=== PATIENT | male | born 1940 | race Caucasian/White ===

== ENCOUNTER 2021-09-30 11:00 | Observation (INO) | payer MEDICARE ==
[~2021-09-30] VITALS: Ht 172.7 cm; Wt 83.9 kg
[2021-09-30 10:44] LABS: BASOPHILS % (AUTO) 0.8 % (0.0-5.0); EOSINOPHILS % (AUTO) 4.8 % (0.0-8.0); LYMPHOCYTES % (AUTO) 18.5 % (21.0-51.0); MEAN CORPUSCULAR HEMOGLOBIN 28.3 pg (27.0-33.0); MEAN CORPUSCULAR HGB CONC 31.4 g/dL (32.0-36.0); MEAN CORPUSCULAR VOLUME 90.2 fL (79-99); MONOCYTES % (AUTO) 10.4 % (3.0-13.0); NEUTROPHILS % (AUTO) 65.1 % (40.0-77.0); PLATELET COUNT (AUTO) 249 K/uL (130-400); WHITE BLOOD COUNT (AUTO) 7.5 K/uL (4.8-10.8)
[2021-09-30 10:52] LABS: CREATININE 1.4 mg/dL (0.5-1.5); POTASSIUM 4.2 mmol/L (3.5-5.1)
[2021-10-03 09:05] VITALS: BP 140/81
[2021-10-03] MEDS ORDERED: MELA1TAB28 PO (12:50)
[2021-10-03] MEDS ORDERED: PREVAGEN PO (12:50)
[2021-10-03] MEDS ORDERED: AEC81 PO (12:50)
[2021-10-03] MEDS ORDERED: CARV12.511 PO (12:50)
[2021-10-03] MEDS ORDERED: CHOL2000 PO (12:50)
[2021-10-03] MEDS ORDERED: SUPER B COMPLEX PO (12:50)
[2021-10-03] MEDS ORDERED: DOCU-116 PO (12:50)
[2021-10-03] MEDS ORDERED: LISI20TA24 PO (12:50)
[2021-10-03] MEDS ORDERED: MVIT PO (13:34)
[2021-10-03] MEDS ORDERED: FINA5TAB41 PO (13:34)
[2021-10-03] MEDS ORDERED: CILO50TA PO (13:34)
[2021-10-03] MEDS ORDERED: IRON PO (13:34)
[2021-10-04] VITALS (18 sets, daily range): BP systolic 132–173; BP diastolic 77–112
[2021-10-04] MEDS: CEFAZOLIN SODIUM 1 GM VIAL IVP SCH ×4 (06:00→19:30)
[2021-10-04] MEDS ORDERED: LACTATED RINGERS 1000ML 1,000 ML IV ONE (06:46)
[2021-10-04] MEDS ORDERED: SUCCINYLCHOLINE CHLORIDE 20 MG/ML 10 ML VIAL ONE (06:50)
[2021-10-04] MEDS ORDERED: DEXAMETHASONE SOD PHOSPHATE 10MG/ML 1ML VIAL ONE ×2 (06:50→06:54)
[2021-10-04] MEDS ORDERED: LIDOCAINE PF 100MG/5ML (2%) SYRINGE 5ML ONE (06:50)
[2021-10-04] MEDS ORDERED: PROPOFOL 10 MG/ML 20ML VIAL IV ONE (06:50)
[2021-10-04] MEDS ORDERED: NEOSTIGMINE 5MG/5ML SYR IV ONE (06:51)
[2021-10-04] MEDS ORDERED: ROCURONIUM 10MG/1ML SYR 10 MG/ML ML ONE (06:51)
[2021-10-04] MEDS ORDERED: MIDAZOLAM HCL 1 MG/ML 2ML VIAL ONE (06:51)
[2021-10-04] MEDS ORDERED: GLYCOPYRROLATE 1 MG/5 ML SYRINGE ONE ×2 (06:51→10:52)
[2021-10-04] MEDS ORDERED: ONDANSETRON 4MG INJ ONE (06:51)
[2021-10-04] MEDS ORDERED: FENTANYL CITRATE PF 50 MCG/1 ML 2ML VIAL ONE (06:51)
[2021-10-04] MEDS ORDERED: MORPHINE PF 100MG/10ML AMP IV ONE (06:52)
[2021-10-04] MEDS ORDERED: CEFAZOLIN SODIUM 1 GM VIAL ONE (06:52)
[2021-10-04] MEDS ORDERED: BUPIVACAINE/EPI/PF 0.25% 30ML VIAL IJ ONE (06:52)
[2021-10-04] MEDS ORDERED: THROMBIN-JMI 20000 UNIT KIT TP ONE (06:53)
[2021-10-04] MEDS ORDERED: PHENYLEPHRINE HCL 10 MG/ML 1ML VIAL IV ONE (07:35)
[2021-10-04] MEDS ORDERED: EPHEDRINE SULFATE 50 MG/ML AMPULE ONE (07:45)
[2021-10-04] MEDS ORDERED: ARTIFICIAL TEARS 3.5 GM OINTMENT ONE (07:56)
[2021-10-04] MEDS ORDERED: 0.9%NACL 10ML VIAL IVP PRN (11:30)
[2021-10-04] MEDS ORDERED: MORPHINE 2 MG SYG IVP PRN (11:30)
[2021-10-04] MEDS ORDERED: PROMETHAZINE HCL 25 MG/ML 1ML AMPULE IM PRN (11:30)
[2021-10-04] MEDS ORDERED: HYDROCODONE/ACETAMINOPHEN 5/325 MG TAB PO PRN (11:30)
[2021-10-04] MEDS ORDERED: ENALAPRILAT DIHYDRATE 1.25MG/ML 1ML VIAL IV ONE (11:48)
[2021-10-04] MEDS ORDERED: ***HM***(Cholecalciferol (Vitamin D3) (Vitamin D3) 50 MCG) PO SCH (11:48)
[2021-10-04] MEDS: LACTATED RINGERS 1000ML 1,000 ML IV SCH (14:16)
[2021-10-04] MEDS: DEXAMETHASONE SOD PHOSPHATE 4 MG/ML 1ML VIAL IVP SCH ×3 (14:16→23:33)
[2021-10-04] MEDS: CARVEDILOL 12.5 MG TABLET PO SCH (20:31)
[2021-10-04] MEDS: CILOSTAZOL 100 MG TAB PO SCH (20:31)
[2021-10-04] MEDS ORDERED: FINASTERIDE 5 MG TABLET PO SCH (21:00)
[2021-10-04] MEDS ORDERED: PYRIDOXINE HCL PO SCH (21:00)
[2021-10-04] MEDS ORDERED: MELATONIN PO SCH (21:00)
[2021-10-05 00:32] VITALS: BP 134/90
[2021-10-05] MEDS: LACTATED RINGERS 1000ML 1,000 ML IV SCH (00:50)
[2021-10-05] MEDS: CEFAZOLIN SODIUM 1 GM VIAL IVP SCH ×2 (01:24→06:00)
[2021-10-05 04:32] VITALS: BP 146/92
[2021-10-05] MEDS: DEXAMETHASONE SOD PHOSPHATE 4 MG/ML 1ML VIAL IVP SCH (05:25)
[2021-10-05] MEDS: CARVEDILOL 12.5 MG TABLET PO SCH (07:51)
[2021-10-05] MEDS: CILOSTAZOL 100 MG TAB PO SCH (07:51)
[2021-10-05 07:55] VITALS: BP 140/82
[2021-10-05] MEDS ORDERED: LISINOPRIL 20 MG TABLET PO SCH (09:00)
[2021-10-05] MEDS ORDERED: MULTIVITAMIN TABLET PO SCH (09:00)
[2021-10-05] MEDS ORDERED: SUPER B COMPLEX PO SCH (09:00)
[2021-10-05] MEDS ORDERED: ASPIRIN 81 MG EC TAB PO SCH (09:00)
[2021-10-05] MEDS ORDERED: PREVAGEN PO SCH (09:00)
[2021-10-06] MEDS ORDERED: FERROUS SULFATE 325 MG TABLET.DR PO SCH (09:00)
[2021-10-06] MEDS ORDERED: DOCUSATE SODIUM 100 MG CAP PO SCH (09:00)
== END 2021-10-05 08:45 | disposition home or self-care (01) ==
LOC: EDSTATUS 11:00 → DAHIP 10-04 05:58 → 4CH 10-04 13:24
PROVIDERS: ADMIT Neurological Surgery; ATTEND Neurological Surgery
DX: M48.061 Spinal stenosis, lumbar region without neurogenic claudication (principal); Z20.822 Contact with and (suspected) exposure to COVID-19; E78.5 Hyperlipidemia, unspecified; I10 Essential (primary) hypertension; Z79.899 Other long term (current) drug therapy
CPT/HCPCS: 36415; 63047; 63048; 71045; 72020; 80048; 85025; 87635; 96374; 96375; 96376 ×2; A4215; A4221; A4222; A4223; A4344; A4510; A4600; A4649 ×3; A4663; G0378 ×22; J0330; J0690 ×3; J1100 ×6; J2001; J2250; J2274; J2370; J2405; J2704; J2710; J3010; J3490 ×5; J7120 ×3

== ENCOUNTER 2022-08-20 23:28 | Emergency (ER) | payer MEDICARE ==
[~2022-08-20] VITALS: Ht 172.7 cm; Wt 93.4 kg
[~2022-08-20 23:28] MED LIST: AEC81 PO; CARV12.511 PO; CHOL2000 PO; CILO50TA2 PO; DOCU-116 PO; FINA5TAB41 PO; IRON PO; LISI20TA24 PO; MELA1TAB28 PO; MVIT PO; PREVAGEN PO; SUPER B COMPLEX PO
[2022-08-20] MEDS ORDERED: MORPHINE 4 MG SYG ONE (23:41)
[2022-08-20] MEDS ORDERED: ONDANSETRON 4MG INJ ONE (23:41)
[2022-08-21] MEDS ORDERED: ONDANSETRON 4MG INJ IVP ONE
[2022-08-21] MEDS ORDERED: MORPHINE 4 MG SYG IVP ONE
[2022-08-21 00:10] LABS: BASOPHILS % (AUTO) 0.5 % (0.0-5.0); HEMATOCRIT 39.8 % (42-54); LYMPHOCYTES % (AUTO) 11.2 % (21.0-51.0); MEAN CORPUSCULAR HEMOGLOBIN 29.6 pg (27.0-33.0); MEAN CORPUSCULAR HGB CONC 32.4 g/dL (32.0-36.0); MEAN CORPUSCULAR VOLUME 91.3 fL (79-99); MONOCYTES % (AUTO) 7.6 % (3.0-13.0); NEUTROPHILS % (AUTO) 77.5 % (40.0-77.0); PLATELET COUNT (AUTO) 210 K/uL (130-400); RED BLOOD CELL COUNT(AUTO) 4.36 MIL/uL (4.50-6.20); RED CELL DISTRIBUTION WIDTH 14.1 % (11.0-15.5); WHITE BLOOD COUNT (AUTO) 10.3 K/uL (4.8-10.8)
[2022-08-21 00:18] LABS: CREATININE 1.4 mg/dL (0.5-1.5); POTASSIUM 3.6 mmol/L (3.5-5.1)
[2022-08-21 00:23] LABS: TOTAL PROTEIN, SERUM 7.5 g/dL (6.0-8.3)
[2022-08-21] MEDS ORDERED: DOCU-116 PO (03:16)
[2022-08-21 03:19] VITALS: BP 162/87
== END 2022-08-21 03:29 | disposition home or self-care (01) ==
LOC: EDH 23:28
DX: K42.9 Umbilical hernia without obstruction or gangrene (principal); I10 Essential (primary) hypertension; E78.00 Pure hypercholesterolemia, unspecified; Z79.899 Other long term (current) drug therapy; Z79.82 Long term (current) use of aspirin; Z90.49 Acquired absence of other specified parts of digestive tract; Z98.890 Other specified postprocedural states
CPT/HCPCS: 99285; 80053; 85025; 36415; 74176; 96374; 96375; J2405; J2270

== ENCOUNTER → 2022-08-22 | Outpatient (CLI) | payer MEDICARE ==
[~2022-08-22] MED LIST changes: +GADOTERATE MEGLUMINE 10 MMOL/20 ML VIAL IV ONE
== END | disposition home or self-care (01) ==
LOC: RAH 07:43
PROVIDERS: ATTEND Neurological Surgery
DX: M47.26 Other spondylosis with radiculopathy, lumbar region (principal); M48.061 Spinal stenosis, lumbar region without neurogenic claudication
CPT/HCPCS: 72158; 72100; A9575